=== PATIENT | male | born 1945 | race Caucasian/White ===

== ENCOUNTER 2023-11-11 14:17 | Emergency (ER) | payer BC ==
[~2023-11-11] VITALS: Ht 177.8 cm; Wt 95.0 kg
[2023-11-11 14:22] VITALS: TEMP 97.9; O2SAT 95
[2023-11-11 15:26] LABS: DIFFERENTIAL COMMENT 0; EOSINOPHILS % 3.2 % (0.0-5.0); HEMATOCRIT. 41.3 % (42.0-52.0); HEMOGLOBIN. 13.6 g/dL (14.0-18.0); LYMPHOCYTES % 15.2 % (20.0-50.0); MEAN CORPUSCULAR HEMOGLOBIN 32.9 pg (28.0-32.0); MEAN CORPUSCULAR HGB CONC 32.8 g/dL (31.0-37.0); MEAN CORPUSCULAR VOLUME 100.2 fL (80.0-94.0); MEAN PLATELET VOLUME 9.5 fl (7.4-10.4); MONOCYTES % 5.6 % (2.0-8.0); PLATELET 216 x1000/uL (130-400); RED BLOOD CELL COUNT 4.13 mill/uL (4.7-6.1); RED CELL DISTRIBUTION WIDTH 15.5 % (11.6-14.6); WHITE BLOOD COUNT 9.4 x1000/uL (4.5-11.0)
[2023-11-11 15:35] LABS: CHLORIDE 109 mEq/L (98-107); POTASSIUM 3.8 mEq/L (3.5-5.1); SODIUM 140 mEq/L (136-145)
[2023-11-11 15:36] LABS: CALCIUM 8.9 mg/dL (8.7-10.4); CARBON DIOXIDE 19 mEq/L (21-32)
[2023-11-11 15:37] LABS: PROTHROMBIN TIME 10.7 sec (9.6-11.0)
[2023-11-11 15:41] LABS: CREATININE 1.4 mg/dL (0.6-1.3); GLUCOSE 117 mg/dL (70-105); UREA NITROGEN BLOOD 15 mg/dL (9-23)
[2023-11-11 15:42] LABS: AMMONIA < 17 uMol/L (<32); ETHANOL BLOOD 152 mg/dL (<10); TROPONIN I HIGH SENSITIVITY 4 ng/L (3.0-53)
[2023-11-11 15:43] LABS: CREATINE KINASE 110 IU/L (46-171)
[2023-11-11 15:46] LABS: THYROID STIMULATING HORMONE 5.13 uIU/mL (0.55-4.78)
[2023-11-11 17:32] LABS: CLARITY URINE CLEAR (CLEAR); COLOR URINE YELLOW (YELLOW); GLUCOSE URINE NEGATIVE (NEGATIVE); KETONES URINE NEGATIVE (NEGATIVE); LEUKOCYTE ESTERASE URINE NEGATIVE (NEGATIVE); NITRITE URINE NEGATIVE (NEGATIVE); OCCULT BLOOD URINE NEGATIVE (NEGATIVE); PROTEIN URINE NEGATIVE (NEGATIVE); UROBILINOGEN URINE 0.2 E.U./dL (0.2-1.0)
[2023-11-11 18:14] LABS: *AMPHETAMINES SCREEN URINE NEGATIVE (NEGATIVE); *BARBITURATES SCREEN URINE NEGATIVE (NEGATIVE); *BENZODIAZEPINES SCREEN URINE NEGATIVE (NEGATIVE); *COCAINE SCREEN URINE NEGATIVE (NEGATIVE)
[2023-11-11 18:15] LABS: CANNABINOID URINE SCREEN NEGATIVE (NEGATIVE); ECSTASY MDMA SCREEN URINE NEGATIVE (NEGATIVE); METHADONE URINE SCREEN NEGATIVE (NEGATIVE); OPIATES URINE SCREEN NEGATIVE (NEGATIVE); PHENCYCLIDINE URINE SCREEN NEGATIVE (NEGATIVE)
[2023-11-11 19:39] VITALS: BP 132/64; PULSE 71; RESP 18; O2SAT 95
== END 2023-11-11 19:41 | disposition home or self-care (01) ==
LOC: ER 14:17
DX: F10.129 Alcohol abuse with intoxication, unspecified (principal); E11.9 Type 2 diabetes mellitus without complications; I10 Essential (primary) hypertension; Y90.6 Blood alcohol level of 120-199 mg/100 ml
CPT/HCPCS: 36415; 71045; 80048; 80305; 80320; 81003; 82140; 82550; 83880; 84443; 84484; 85025; 99284; G0480